=== PATIENT | female | born 1970 | race Caucasian/White ===

== ENCOUNTER 2024-09-18 11:41 | Inpatient (IN) | payer OTHER ==
[2024-09-18] MEDS ORDERED: TRAMADOL HCL 50 MG TAB PO PRN (20:50)
[2024-09-18] MEDS ORDERED: POLYETHYL GLY 3350 17 GM/DOSE PO PRN (20:50)
[2024-09-18] MEDS ORDERED: CETIRIZINE HCL 5 MG TABLET PO PRN (20:50)
[2024-09-18] MEDS: ACETAMINOPHEN 500 MG TAB PO SCH (21:00)
[2024-09-18] MEDS: ONDANSETRON 4 MG (ODT) TAB PO PRN (21:38)
[2024-09-18] MEDS: HYDROCODONE/APAP 5/325 MG TAB PO PRN (21:39)
[2024-09-18] MEDS: NORTRIPTYLINE HCL 25 MG CAP PO SCH (21:39)
[2024-09-18] MEDS: GABAPENTIN 100 MG CAP PO SCH (21:40)
[2024-09-18] MEDS: TRAZODONE 50 MG TABLET PO PRN (21:40)
[2024-09-18] MEDS: CYCLOBENZAPRINE 10 MG TAB PO SCH (21:40)
[2024-09-18] MEDS: QUETIAPINE 100MG TAB PO SCH (21:46)
[2024-09-18 22:28] VITALS: BMI 21.6
[2024-09-19] MEDS ORDERED: TRAMADOL HCL 50 MG TAB PO PRN (00:49)
[2024-09-19] MEDS ORDERED: TRAZODONE 50 MG TABLET PO SCH (01:00)
[2024-09-19 05:30] LABS: Hematocrit 23.8 % (36.0-45.0); Hemoglobin 7.9 g/dL (12.0-15.0); MCH 28.2 pg (27.0-35.0); MCHC 33.1 g/dL (32.0-36.0); MCV 85.2 fL (80-100); MPV 10.5 fL (7.6-11.3); RBC Red Blood Cell Count 2.80 M/uL (3.86-4.86); White Blood Count 2.60 thou/uL (4.3-10.9)
[2024-09-19 05:45] LABS: ALT/SGPT 19.0 U/L (13-56); AST/SGOT 36.0 U/L (15-37); Albumin 1.6 g/dL (3.4-5.0); Albumin/Globulin Ratio 0.5 (1.1-1.8); Alkaline Phosphatase 488.0 U/L (45-117); Anion Gap 7.7 mEq/L (5.0-15.0); BUN Blood Urea Nitrogen 13.0 mg/dL (7-18); Bilirubin Indirect, Calculated 0.4 mg/dL (0.2-0.8); Globulin 3.3 g/dL (2.3-3.5); Glucose Level 94.0 mg/dL (74-106); Magnesium 1.8 mg/dL (1.6-2.4); Potassium 3.7 mEq/L (3.5-5.1); Prealbumin 4.9 mg/dL (20-40)
[2024-09-19] MEDS: HYDROCODONE/APAP 5/325 MG TAB PO PRN (05:46)
[2024-09-19 05:50] LABS: Urine Microscopic Reflex YN NO UMIC
[2024-09-19 06:01] LABS: Differential Total Cells Count 100; Segmented Neutrophils 56 % (40-80); Smudge Cells 4
[2024-09-19 06:02] LABS: Blood Morphology Comment NOT SEEN (NOT SEEN)
[2024-09-19] MEDS: PANTOPRAZOLE 40MG TABLET PO SCH (06:35)
[2024-09-19] MEDS: LEVOTHYROXINE SOD 0.1 MG TAB PO SCH (06:36)
--- NOTE | 2024-09-19 07:52 | RAD REPORT ---
EXAM: AP view(s) of the abdomen Abdomen 1 View (KUB) HISTORY: r/o constipation COMPARISON: None FINDINGS: Nonobstructive bowel gas pattern.. Mild formed stool burden with formed stool at the ascending colon , sigmoid, and rectum. No suspicious calcifications are seen. No acute osseous abnormality. Other: Surgical clips in the right upper quadrant. IMPRESSION: Nonobstructive bowel gas pattern.
[2024-09-19] MEDS: [UNRECOGNIZED DRUG - OTHER] TOP SCH (08:00)
[2024-09-19] MEDS: AMYLASE/LIPASE/PROTEASE CAP PO SCH (08:42)
[2024-09-19] MEDS: CETIRIZINE HCL 5 MG TABLET PO SCH (08:43)
[2024-09-19] MEDS: LACTOBACILLUS/ACIDOPHILUS TAB PO SCH (08:43)
[2024-09-19] MEDS: ASCORBIC ACID 500 MG TABLET PO SCH (08:44)
[2024-09-19] MEDS: CITALOPRAM 10 MG TABLET PO SCH (08:44)
[2024-09-19] MEDS: MULTIVITAMIN TAB PO SCH (08:44)
[2024-09-19] MEDS: ENOXAPARIN 40 MG/0.4 ML SQ SCH (08:44)
[2024-09-19] MEDS ORDERED: TRIAMCINOLONE ACETONIDE TOP SCH (20:00)
[2024-09-19] MEDS: TRAMADOL HCL 50 MG TAB PO SCH (20:54)
[2024-09-19] MEDS: TRIAMCINOLONE ACETONIDE 0.1% TOP SCH (20:54)
--- NOTE | 2024-09-20 00:41 | HP ---
Date of Admission: 09/18/2024 Reason For Admission: Significant debility with complex medical history. History Of Present Illness: Ms. Aranda is a 54-year-old patient with history of allergic rhinitis, attention deficit hyperactivity disorder, depression, eczema, Gilbert's syndrome, mental retardation, chronic pancreatitis, who resides at the [facility] in [place], [place], a detention where bear was under 24/7 supervision. She was independent with mobility, performing activities of daily lester ng independently, and did not require an assistive device. She was hospitalized for flare of her chr onic pancreatitis in May and early August 2024. An attempt was made to remove a biliary stent, but t he procedure was unsuccessful. She was eventually cleared by the Surgical Team without a successful procedure, however, continued to require significant ongoing medical management for her comorbid cond itions. She had chronic pancreatitis along with liver dysfunction and jaundice, colonic volvulus, sm all bowel obstruction, cannot have a bowel movement in 6 days until with a fleets enema, in addition to bacterial peritonitis, epigastric abdominal pain, and cognitive impairment. She was evaluated by the Therapy Service and found to require significant help for performance of activities of daily lester ng, for transfers, for mobilization at home, and ambulation. While she was hospitalized prior to com ing to inpatient rehabilitation, she did have a multidisciplinary approach to manage pain, nutrition, to address her wound, which is a stage III wound in the abdominal area, and to monitor hemoglobin, h ematocrit, her liver function and kidney function. At this point, she is functioning well below her baseline, where she was independent and transferring without any assistive device. She needs moderate assistance for lower body dressing, dependent for toileting, supervision to minimum assistance for sit to stand, contact guard assistance for ambulatio n limited to about 125 feet. Also, she need speech for cognitive issues, safety awareness, and good decision making. As a result, she is admitted to the inpatient rehabilitation unit for physical, occ upational, and speech therapy 3.5 hours, 5 of 7 days, to help her return to her prior level of functi oning and go back to her detention. Past Medical History: Pancreatitis, disease, psychotic episodes, vitamin D deficiency, in flammatory bowel disease, Gilbert's syndrome, hypertension, impaired vision, allergic rhinitis, atten tion deficit hyperactivity disorder. Past Surgical History: She has dilatation, endoscopy of small intestine, ERCP with balloo n sweeping and esophagogastroduodenoscopy, hepatojejunostomy, laparotomy, rectal surgery, tonsillecto my, thyroidectomy, and tubal ligation. Allergies: CEPHALEXIN, CEPHALOSPORIN, MEPERIDINE, AND SULFA. Medications: Tylenol 650 every 8 hours as needed, vitamin C 500 mg daily, Zyrtec 10 mg daily, Celexa 30 mg daily, gabapentin 100 mg 3 times daily, Olema 5/325 every 4 hours as needed, Lactinex 1 tablet daily, Synthroid 0.1 mg daily, regular centrum 1 tablet daily, Pamelor 25 mg at bedtime, Zofran 4 mg every 4 hours as needed, Protonix 40 mg daily, Seroquel 100 mg at bedtime, tramadol 50 mg twice den y, Desyrel 50 mg at bedtime, and Actigall 300 mg twice daily. Laboratory Studies: White blood cell count is down to 2.6, hemoglobin 7.9, platelets are down to 62, now she is SCDs with heparin for DVT prophylaxis. Sodium 138, potassium 3.7, chloride 107, carbon d ioxide 27, BUN is 17, creatinine 0.36, glucose 94, calcium 7.8, magnesium 1.8, total bilirubin 4.2, i ndirect 0.4, AST 26, ALT 19, alkaline phosphatase elevated at 488, serum protein 4.9, albumin 1.6, to amanuel bilirubin 3.3, prealbumin 4.9. Urinalysis, 1+ urobilinogen, otherwise unremarkable. X-ray/imaging: She had a KUB x-ray done. The study shows nonobstructive bowel gas pattern. Family History: Noncontributory. Social History: No alcohol, tobacco, or IV drug use. The patient lives at home. Current Level Of Functioning: Currently, eating setup assistance, grooming setup assistance, moderat e assistance for bathing, upper body dressing as well as lower body dressing, dependent for toileting , supervision for transfers from bed to chair to wheelchair, toilet transfer moderate assistance, amb ulation 125 feet with supervision. Physical Examination: Vital Signs: Blood pressure 114/66, pulse 83, respiratory rate 16, temperature 98.5, oxygen saturati on 97%. Weight 130 pounds, height 5 feet 5 inches, BMI 21.6. General: Ms. Aranda is resting comfortably in bed. She is in no significant distress. HEENT: She appears normocephalic, atraumatic. Sclerae anicteric. Oropharynx pink and moist. Neck: Supple. Chest: Clear. Abdomen: She has good hemostasis at the surgical site in the abdominal region. Neurological: She follows commands appropriately. Cranial nerves intact 2 through 12. She has symm etric strength in upper extremities, however, slightly depressed from 4+ in upper and lower extremiti es. Intact sensation bilaterally. She is able to move both lower extremities fairly well. She did stand and ambulate with physical therapist. Rehab And Medical Assessment And Plan: Ms. Aranda is a 54-year-old patient admitted to the [facility] rehabilitation unit with impairment category 20, miscellaneous. Impairment group code is 16, debil ity. Etiologic diagnosis, chronic pancreatitis. Her comorbid conditions include decreased mobility, decreased physical functioning, , attention deficit hyperactivity disorder, depression, Gi lbert's syndrome, hypertension, disease, thyroid disease, prior psychotic episodes. Plan: In terms of her plan, she will have physical, occupational, and speech therapy 3.5 hours, 5 of 7 days. Her comorbid conditions are being addressed by continuing her list of medications which hav e been outlined. She will have due to very low platelets SCDs instead of Eliquis or Lovenox for DVT prophylaxis. Her cognitive issues addressed with speech. If need be, chair and bed alarm will be pl aced if she does exhibit impulsivity. Rehab Specific Plan: Ms. Aranda will have physical and occupational along with speech therapy for 3 .5 hours, 5 of 7 days, to improve her ability to communicate effectively, to monitor her safety aware ness issues, to perform activities of daily living , and to get back towards her prior leve l of functioning. She will have physical therapy to help her with transfers, mobilization, ambulatio n, and to ambulate without an assistive device, which she will be able to do so, and go up and down s everal steps as well. Occupational therapy will help with her upper and lower body dressing, toileti ng, showering, and managing all activities of daily living. She will have speech again for cognitive functioning. Ms. Aranda has a good understanding of the process of admission to the inpatient rehabilitation unit and how she will benefit from physical, occupational, and speech therapy. She will have 24 hours a day, 7 days a week, skilled rehabilitation and nursing, daily physician evaluation and management, an d perinatal social worker evaluation and management for discharge planning, home equipment, and physician fol lowup. If need be, additional help will be sought from the Hospitalist Service. Barriers To Discharge: Currently, there is some cognitive impairment making it difficult for her to fully appreciate all that she is requiring to do to help to return home safely. Furthermore, if ther e is a worsening requiring IV antibiotics, it may prolong her stay or she may have to go t o a facility that can manage multiple IV antibiotics such as an LTAC. However, the goal is to go miguel k to her detention where she can continue with therapy and return to her prior level of functioning. Length Of Stay: About 12 to 14 days. Disposition: Expected to go back to her detention and continue therapy via Home Health. Prognosis: Good. Code Status: Full code. Rehab Specific Goals: Become independent as possible with upper and lower body dressing, donning and doffing of footwear, transferring independently, mobilizing independently, up and down several steps independently. She is also expected to potentially do all of her cognitive functioning with just mi ld supervision. The above goals were reviewed with Ms. Aranda and she is in agreement. By signing this document, I acknowledge I personally performed a full physical examination on Ms. Veronika kirkland no later than 24 hours after her admission to the inpatient rehabilitation unit and determined t hat she is able to tolerate the above course of treatment at an intensive level for a reasonable tali od of time. A detailed individualized plan of care for her will be completed by hospital day 4 based on the preadmission screen, history and physical, and therapy evaluations. GAEL Voice ID: [id number]
[2024-09-20 07:30] LABS: Hematocrit 27.6 % (36.0-45.0); Hemoglobin 8.9 g/dL (12.0-15.0); MCH 27.8 pg (27.0-35.0); MCHC 32.4 g/dL (32.0-36.0); MCV 85.7 fL (80-100); MPV 9.7 fL (7.6-11.3); RBC Red Blood Cell Count 3.22 M/uL (3.86-4.86); White Blood Count 6.00 thou/uL (4.3-10.9)
[2024-09-20 07:51] LABS: ALT/SGPT 22.0 U/L (13-56); AST/SGOT 28.0 U/L (15-37); Albumin 1.7 g/dL (3.4-5.0); Albumin/Globulin Ratio 0.5 (1.1-1.8); Alkaline Phosphatase 572.0 U/L (45-117); Anion Gap 11.9 mEq/L (5.0-15.0); BUN Blood Urea Nitrogen 15.0 mg/dL (7-18); Globulin 3.6 g/dL (2.3-3.5); Glucose Level 64.0 mg/dL (74-106); Potassium 3.9 mEq/L (3.5-5.1)
[2024-09-20 09:16] LABS: Blood Morphology Comment NOTED (NOT SEEN); Differential Total Cells Count 100; Hypochromasia 1+; Segmented Neutrophils 91 % (40-80)
--- NOTE | 2024-09-20 12:11 | RAD REPORT ---
Procedure: Chest Single View HISTORY: Cough COMPARISON: none FINDINGS: Elevation of the right hemidiaphragm. Right pleural effusion suspected Areas of subsegmental atelectasis left base. Heart probably normal size. IMPRESSION: Right pleural effusion suspected. CT chest is recommended..
[2024-09-20] MEDS: NA CHLORIDE 0.9% 1,000 ML IV SCH (12:20)
[2024-09-20] MEDS: ALBUTEROL 2.5 MG/3 ML NEB SOL NEB PRN (13:49)
--- NOTE | 2024-09-20 21:48 | RAD REPORT ---
EXAM: CT CHEST WITH CONTRAST CLINICAL INDICATION: Evaluate right pleural effusion TECHNIQUE: Routine CT scan of the chest with intravenous contrast. One or more of the following dose reduction techniques were used: Automated exposure control, adjustment of the mA and/or kV according to patient size, and/or iterative reconstruction. Unless otherwise specified, incidental fi ndings do not require dedicated imaging follow-up. COMPARISON: No prior exam. FINDINGS: LUNGS: Mild/moderate subsegmental atelectasis in both lung bases. Small bilateral pleural effusions, slightly greater on the right. PLEURA: No pleural effusion. No pneumothorax. MEDIASTINUM AND LYMPH NODES: No mediastinal mass or fluid collection. Normal size mediastinal, hilar, and axillary lymph nodes. OSSEOUS STRUCTURES AND CHEST WALL: Intact. UPPER ABDOMEN: Significant splenomegaly noted. There is evidence of mild ascites in the upper abdomen along with moderate intrahepatic biliary tree dilatation. IMPRESSION: Small bilateral pleural effusions, slightly greater on the right, with bibasilar atelectasis.
--- NOTE | 2024-09-21 01:48 | PN ---
Subjective: Manoj is resting comfortably. She denies any worsening pain, feels she is making prog ress in terms of recovery. She is probably to be discharged in 2 days. She has good hemostasis at t he surgical site in the abdominal region. Objective: No fevers, chills, nausea, vomiting. No significant myalgias, arthralgias, rash. Some d ifficulty with sleeping and blood pressures. Physical Examination: Vital Signs: Blood pressure 100/55, pulse 82, respiratory rate 18, temperature 97.6, oxygen saturati on 92%. Weight 130 pounds, height 5 feet 5 inches, BMI 21.6. General: Ms. Aranda is resting comfortably, no pain, no acute distress. HEENT: She is normocephalic, atraumatic. Pain earlier was 6 to 7/10. Pain medications were adjusted. Otherwise, she has no focal deficits. Laboratory Studies: White blood cell count 6.0, hemoglobin 8.9, platelets improved to 112 from 62. Her sodium 138, potassium 3.9, chloride 106, carbon dioxide is 24, BUN 15, creatinine 0.52, calcium 8 .0, total bilirubin 5.6 and direct 3.8, which is normal from the liver dysfunction, alkaline phosphat ase is 572, albumin 1.7, and her prealbumin is 4.9. Urinalysis, 1+ bilirubin, otherwise unremarkable . X-ray/imaging: A chest x-ray was done earlier today, the study did show some right pleural effusion suspected and a CT scan was recommended and that is pending. Medications: She is on Tylenol 650 mg every 8 hours as needed, Gray 5/325 every 4 hours, albuterol nebulizer 2.5 mg every 6 hours. She has Pancrezyme for pancreatitis, vitamin C 500 mg daily, Zyrtec 10 mg daily, Celexa 20 mg daily, Flexeril 10 mg 3 times daily, gabapentin 100 mg 3 times daily. She has Lactinex on board, Synthroid 0.1 mg daily, Centrum Silver 1 tablet daily, Pamelor 25 mg at bedtim e, Protonix 40 mg daily, Seroquel 100 mg at bedtime, tramadol 50 mg twice daily, Desyrel 50 mg at bed time, and Actigall 300 mg twice daily. Progress Made With Physical, Occupational, And Speech Therapy: With physical therapy today, she ambu lated 750 feet with contact guard to standby assistance on leveled surface. She mobilized a wheelcha ir 250 feet with minimum assistance. She did have some drop in blood pressure to 99/64, heart rate 1 19. EKG shows sinus tachycardia. With occupational therapy, she required verbal cues using a Rollat or safely, independent with supine to sit transfers. She was able to pickup 15 ducks from the floor with a wheelchair while seated. With her speech today, she did sustain attention tasks for 10 minute s, demonstrated an average 70% accuracy. Temporal orientation skills used with 50% accuracy and spat ial skills with 75% accuracy, working memory 0.3 units of information was done with 90% accuracy. Assessment: Ms. Aranda is a 54-year-old patient admitted to the rehabilitation unit with pancreatit is, debility, decreased mobility, decreased physical functioning. She has of course other medical co nditions including recent surgery, she has anxiety, depression, GE reflux, neuropathic pain, shortnes s of breath, and sinus tachycardia. Plan: She will continue with physical, occupational, and speech therapy 3.5 hours, 5 of 7 days. Med ications have been noted above. We will continue to address her comorbid conditions. She has DVT pr ophylaxis with SCDs. She will continue with her comorbid condition medications which have been noted and therapy again as noted above, physical, occupational, and speech therapy 3.5 hours, 5 of 7 days. JANNA/DAVID Voice ID: [id number] Report ID: [id number]
--- NOTE | 2024-09-21 13:26 | P.RH.PN ---
Estimated Length of Stay: 11 Expected Discharge Date: 09/27/24 Discharge Disposition Plan: Home Family Support: Yes Alf Goal: Mobility, Transfers, Self Care Vital Signs: Last Vital Signs Temp 98.7 F 09/21/24 07:00 Pulse 98 H 09/21/24 07:00 Resp 16 09/21/24 07:00 BP 102/54 L 09/21/24 07:00 Pulse Ox 100 09/21/24 07:00 Laboratory: Laboratory Last Values WBC 6.00 thou/uL (4.3-10.9) 09/20/24 07:19 RBC 3.22 M/uL (3.86-4.86) L 09/20/24 07:19 Hgb 8.9 g/dL (12.0-15.0) L D 09/20/24 07:19 Hct 27.6 % (36.0-45.0) L 09/20/24 07:19 MCV 85.7 fL (80-100) 09/20/24 07:19 MCH 27.8 pg (27.0-35.0) 09/20/24 07:19 MCHC 32.4 g/dL (32.0-36.0) 09/20/24 07:19 RDW 18.1 % (12.1-15.2) H 09/20/24 07:19 Plt Count 112 thou/uL (152-406) L D 09/20/24 07:19 MPV 9.7 fL (7.6-11.3) 09/20/24 07:19 Neutrophils % FOLDER MACHINE 09/20/24 07:19 Lymphocytes % FOLDER MACHINE 09/20/24 07:19 Absolute Neutrophils FOLDER MACHINE 09/20/24 07:19 Segmented Neutrophils 91 % (40-80) H 09/20/24 07:19 Band Neutrophils 14 % (0-1) H 09/19/24 05:04 Absolute Lymphocytes FOLDER MACHINE 09/20/24 07:19 Lymphocytes 4 % (15-42) L 09/20/24 07:19 Monocytes 5 % (0-10) 09/20/24 07:19 Absolute Monocytes FOLDER MACHINE 09/20/24 07:19 Eosinophils 3 % (0-3) 09/19/24 05:04 Absolute Eosinophils FOLDER MACHINE 09/20/24 07:19 Absolute Basophils FOLDER MACHINE 09/20/24 07:19 Reactive Lymphocytes 7 % 09/19/24 05:04 Smudge Cells 4 09/19/24 05:04 Platelet Estimate Decr 09/20/24 07:19 Hypochromasia 1+ 09/20/24 07:19 Morphology Comment Noted (NOT SEEN) 09/20/24 07:19 Sodium 138 mEq/L (136-145) 09/20/24 07:19 Potassium 3.9 mEq/L (3.5-5.1) 09/20/24 07:19 Chloride 106 mEq/L (98-107) 09/20/24 07:19 Carbon Dioxide 24 mEq/L (21-32) 09/20/24 07:19 Anion Gap 11.9 mEq/L (5.0-15.0) 09/20/24 07:19 BUN 15 mg/dL (7-18) 09/20/24 07:19 Creatinine 0.52 mg/dL (0.55-1.02) L 09/20/24 07:19 Est GFR (CKD-EPI) 112 ml/min (=/>90) 09/20/24 07:19 Glucose 64 mg/dL (74-106) L 09/20/24 07:19 Calcium 8.0 mg/dL (8.5-10.1) L 09/20/24 07:19 Magnesium 1.8 mg/dL (1.6-2.4) 09/19/24 05:04 Total Bilirubin 5.6 mg/dL (0.2-1.0) H 09/20/24 07:19 Direct Bilirubin 3.8 mg/dL (0-0.2) H 09/19/24 05:04 Indirect Bilirubin 0.4 mg/dL (0.2-0.8) 09/19/24 05:04 AST 28 U/L (15-37) 09/20/24 07:19 ALT 22 U/L (13-56) 09/20/24 07:19 Alkaline Phosphatase 572 U/L (45-117) H 09/20/24 07:19 Serum Total Protein 5.3 g/dL (6.4-8.2) L 09/20/24 07:19 Albumin 1.7 g/dL (3.4-5.0) L 09/20/24 07:19 Globulin 3.6 g/dL (2.3-3.5) H 09/20/24 07:19 Albumin/Globulin Ratio 0.5 (1.1-1.8) L 09/20/24 07:19 Prealbumin 4.9 mg/dL (20-40) L 09/19/24 05:04 Urine Color Yellow (Yellow) 09/19/24 05:35 Urine Clarity Clear (Clear) 09/19/24 05:35 Urine pH 6.0 (5.0-7.0) 09/19/24 05:35 Ur Specific [place] 1.012 (1.005-1.030) 09/19/24 05:35 Glucose (UA)(Auto) Negative (Negative) 09/19/24 05:35 Urine Ketones Negative (Negative) 09/19/24 05:35 Urine Blood Negative (Negative) 09/19/24 05:35 Urine Nitrite Negative (Negative) 09/19/24 05:35 Urine Bilirubin 1+ (Negative) H 09/19/24 05:35 Urine Urobilinogen Normal (Normal) 09/19/24 05:35 Ur Leukocyte Esterase Negative Shanta/uL (Negative) 09/19/24 05:35 Urine Total Protein Negative (Negative) 09/19/24 05:35 Weight: 130 lb Wound Present: No Physician Update: Low prealbumin likely 2nd to chronic pancreas issues. Will give albumin. Her mom will work on a fdc snf instead of a senior care. SLUMS 3, poor attention, orientation and memory. With PT, CGA to SBA with bed mobility, transfers, RW 500' x 2, BP mid 90s/50s. Will start midodrine 5 mg in the morning. She was symptomatic with showers. 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 Please see the Rehabilitation Signature page for all necessary signatures.
[2024-09-21] MEDS ORDERED: D5 0.45 NS 1,000 ML IV SCH (15:00)
[2024-09-21] MEDS: D5 0.45 NS 1,000 ML IV SCH (15:06)
[2024-09-21] MEDS: ALBUMIN HUMAN 25% 50 ML IV ONE (15:17)
[2024-09-22] MEDS: MIDODRINE HCL 5 MG TABLET PO SCH (07:49)
[2024-09-22 08:50] LABS: Hematocrit 22.0 % (36.0-45.0); Hemoglobin 7.2 g/dL (12.0-15.0); MCH 28.2 pg (27.0-35.0); MCHC 32.7 g/dL (32.0-36.0); MCV 86.3 fL (80-100); MPV 12.6 fL (7.6-11.3); Nucleated RBC Absolute Count 0.0 (0-0); Nucleated Red Blood Cells % 0.0 % (0-0); RBC Red Blood Cell Count 2.55 M/uL (3.86-4.86); White Blood Count 9.80 thou/uL (4.3-10.9)
[2024-09-22 09:22] LABS: ALT/SGPT 21.0 U/L (13-56); AST/SGOT 40.0 U/L (15-37); Albumin 1.6 g/dL (3.4-5.0); Albumin/Globulin Ratio 0.5 (1.1-1.8); Alkaline Phosphatase 527.0 U/L (45-117); Anion Gap 9.7 mEq/L (5.0-15.0); BUN Blood Urea Nitrogen 22.0 mg/dL (7-18); Globulin 3.4 g/dL (2.3-3.5); Glucose Level 94.0 mg/dL (74-106); Potassium 3.7 mEq/L (3.5-5.1)
[2024-09-22 11:35] LABS: Blood Morphology Comment NOTED (NOT SEEN); Differential Total Cells Count 100; Hypochromasia 1+; Segmented Neutrophils 85 % (40-80)
[2024-09-22 12:55] LABS: Toxic Granulation 1+
[2024-09-24 06:59] LABS: Hematocrit 23.3 % (36.0-45.0); Hemoglobin 7.6 g/dL (12.0-15.0); MCH 27.8 pg (27.0-35.0); MCHC 32.7 g/dL (32.0-36.0); MCV 84.8 fL (80-100); MPV 11.0 fL (7.6-11.3); RBC Red Blood Cell Count 2.75 M/uL (3.86-4.86); White Blood Count 7.60 thou/uL (4.3-10.9)
[2024-09-24 07:17] LABS: ALT/SGPT 24.0 U/L (13-56); AST/SGOT 29.0 U/L (15-37); Albumin 1.5 g/dL (3.4-5.0); Albumin/Globulin Ratio 0.4 (1.1-1.8); Alkaline Phosphatase 541.0 U/L (45-117); Bilirubin Indirect, Calculated 0.7 mg/dL (0.2-0.8); Globulin 3.5 g/dL (2.3-3.5); Magnesium 1.7 mg/dL (1.6-2.4)
--- NOTE | 2024-09-24 07:45 | RAD REPORT ---
EXAM: XR of the abdomen HISTORY: Abdominal pain r/o obstruction/bladder distention COMPARISON: 09/19/2024 FINDINGS: XR of the abdomen shows a distended gas-filled appearance to the colon with mild fecal rete ntion. Cholecystectomy. No suspicious calcifications are seen. The bones are unremarkable. IMPRESSION: Mild distended gas and stool-filled colon, similar to prior study. No bowel obstruction seen.
[2024-09-24 10:29] LABS: Differential Total Cells Count 100; Segmented Neutrophils 91 % (40-80)
[2024-09-24 10:30] LABS: Anisocytosis 1+; Blood Morphology Comment NOTED (NOT SEEN); Hypochromasia 1+; Target Cells 1+
[2024-09-25 05:31] LABS: Anion Gap 10.3 mEq/L (5.0-15.0); BUN Blood Urea Nitrogen 14.0 mg/dL (7-18); Glucose Level 103.0 mg/dL (74-106); Potassium 3.3 mEq/L (3.5-5.1)
--- NOTE | 2024-09-26 03:51 | PN ---
Date of Progress Note: 09/25/2024 Time: 1:40 p.m. Subjective: Ms. Aranda is resting comfortably in bed, although she does have appearance of worsenin g jaundice with yellowing of the skin, eyes, and nails. The patient's mom entered the room to contin ue discussion about her prognosis. She did indicate that the patient was seen by the GI surgery and has had for at least 4 years. Multiple attempts at working on pancreatic function along with the [facility] and , but has come to a point where there is no longer a surgical option for her and she is not a transplant candidate. Discussion was entered into for the patient to consider hospice and that is a current plan. Review of Systems: No ongoing fevers or chills. Some episodes of disorientation, confusion, possibly related to combina tion of the metabolic encephalopathy and Flexeril. Flexeril infection study was discontinued and the patient is somewhat better in terms of orientation, following instructions, not hearing or seeing th ings. That was also discussed with the patient's mom and she will have episodes of psychotic issues as hearing and seeing things. May have some fixed false beliefs because of the significant metabolic derangements and elevated bilirubin levels. Physical Examination: Vital Signs: Blood pressure is 116/62, pulse 97, respiratory rate 18, temperature 98.4, oxygen satur ation 94%. General: Ms. Aranda is resting comfortably in bed. She does have appearance of jaundice on all ski n surface areas, sclerae, and nailbed. HEENT: She does appear normocephalic, atraumatic. Sclerae anicteric. Oropharynx moist. Neck: Supple. Laboratory Studies: White blood cell count 7.6, hemoglobin also 7.6, platelets are down to 73. Her total bilirubin elevated to 7.2, direct bilirubin elevated to 6.5, indirect is normal at 0.7, AST 29, ALT 24, alkaline phosphatase 541. Ammonia level is less than 15. Calcium 7.9, creatinine 0.51, sod ium 135, potassium 3.3. X-ray/imaging: KUB x-ray that was done yesterday showed mild distended gas and stool-filled colon, s o the prior study, no bowel obstruction is seen. Progress Made With Physical, Occupational, And Speech Therapy: With physical therapy, she noted, she did not want to be back out of bed. She did some exercises in bed, hip abduction and adduction, glu teal sets, heel slides, ankle pumps, and quadriceps exercises. Earlier, she did ambulate 250 feet an d 750 feet with short rest breaks, up and down 10 steps twice with bilateral handrails with contact g uard assistance, and walked 10 feet without assistive device. In terms of occupational therapy, cont act guard assistance for bed mobility, was able to supine, head of bed elevation, and sit to stand an d from edge of bed using a rolling walker, independent with toileting and handwashing. With speech t herapy, maintained sustained attention for 3 minutes, completed task with 90% accuracy with minimum a ssistance needed. Temporal orientation tasks with 80% accuracy and maximum assistance for visual aid s. She did recall 3 of 3 unrelated items after 30-second delay with moderate assistance to maximum a ssistance. Needed maximum assistance for working memory for 3 units of information with 50% accuracy . Assessment And Plan: Ms. Aranda is a 54-year-old patient who is in rehabilitation unit with pancrea titis. She has worsening renal failure with elevated bilirubin. She is a nonsurgical candidate per the patient's family reportedly. They are working with the surgeon for at least 1 year. She has dec reased mobility, decreased physical functioning, episode of psychotic features, and neuropathic pain. She is addressed with multiple modality pain management, hypothyroidism addressed. She has midodri ne for low blood pressures, Zofran for nausea, tramadol for pain, and trazodone for insomnia. She wi ll continue all therapy, physical, occupational, and speech. She is likely to be transferred to a [facility] for hosp[facility] care at [facility]. Plan: Again, continue all therapy until time of discharge. Continue with medication management. As noted, pain to be addressed on an ongoing basis. JANNA/DAVID Voice ID: [id number] Report ID: [id number]
[2024-09-26 06:47] LABS: Hematocrit 21.2 % (36.0-45.0); Hemoglobin 7.0 g/dL (12.0-15.0); MCH 27.4 pg (27.0-35.0); MCHC 33.2 g/dL (32.0-36.0); MCV 82.6 fL (80-100); MPV 11.7 fL (7.6-11.3); Nucleated RBC Absolute Count 0.0 (0-0); Nucleated Red Blood Cells % 0.0 % (0-0); RBC Red Blood Cell Count 2.57 M/uL (3.86-4.86); White Blood Count 12.20 thou/uL (4.3-10.9)
[2024-09-26 07:04] LABS: ALT/SGPT 18.0 U/L (13-56); AST/SGOT 23.0 U/L (15-37); Albumin 1.4 g/dL (3.4-5.0); Albumin/Globulin Ratio 0.4 (1.1-1.8); Alkaline Phosphatase 502.0 U/L (45-117); Anion Gap 8.2 mEq/L (5.0-15.0); BUN Blood Urea Nitrogen 16.0 mg/dL (7-18); Bilirubin Indirect, Calculated 1.1 mg/dL (0.2-0.8); Globulin 3.6 g/dL (2.3-3.5); Glucose Level 98.0 mg/dL (74-106); Magnesium 1.7 mg/dL (1.6-2.4); Potassium 3.2 mEq/L (3.5-5.1); Prealbumin 3.1 mg/dL (20-40)
[2024-09-26] MEDS: POTASSIUM CL SA 10 MEQ TAB PO ONE (08:53)
[2024-09-26 09:22] LABS: Blood Morphology Comment NOTED (NOT SEEN); Differential Total Cells Count 100; Segmented Neutrophils 82 % (40-80)
[2024-09-26 09:23] LABS: Anisocytosis 1+; Hypochromasia 1+; Target Cells 1+
--- NOTE | 2024-09-26 23:37 | PN ---
Date of Progress Note: 09/26/2024 Time: 1:10 Subjective: Ms. Aranda is resting comfortably. She appears more jaundiced today than yesterday, bu t she despite that is doing excellent in terms of her physical activity, out of the bed, mobilization , ambulation, and even up and down steps. She has no new complaints. Objective: No fevers or chills. Some nausea. Some difficulty keeping any oral intake as well given her significant pancreatitis and liver dysfunction with some markedly elevated bilirubin. Physical Examination: Vital Signs: Blood pressure is 102/55, pulse 96, respiratory rate 17, temperature 99.4, oxygen satur ation 94%. General: Ms. Aranda looks very jaundiced in all her skin and mucous membranes, and her sclerae, and nail bed. Otherwise, examination is unchanged. Neurologic: She has no focal neurologic deficits. Diffuse upper and lower extremity weakness. Laboratory Studies: Today, white blood cell count did go up to 12.2. She had a hemoglobin of 7.0, p latelets 272. Her neutrophils were 82, down from 91 two days ago. Sodium 135, potassium 3.2, chlori de 104, carbon dioxide 26, BUN 16, creatinine 0.7. Lactic acid is normal at 0.9. Her procalcitonin is significantly elevated at 3.09 and this is suggestive of systemic infection. Total bilirubin incr eased from 7.2 on the 4th to 9.1 today. Direct bilirubin increased from 6.5 to 8.0, indirect bilirub in increased from 0.7 to 1.1. AST normal at 33, ALT 18, alkaline phosphate decreased slightly from 5 41 to 502. Ammonia level is less than 15. Albumin is down to 1.4. Her prealbumin is very low at 3. 1. Again, procalcitonin 3.09. X-ray/imaging: No new x-rays or imaging done. Progress Made With Physical, Occupational, And Speech Therapy: With physical therapy today, she did ambulate 250 feet 5 times independently without an assistive device. She did work on in2nite for stability. She ascended and descended 20 steps independently using bilateral handrails. Re garding occupational therapy, independent with upper body dressing, lower body dressing, and footwear donning and doffing. Independent with oral hygiene at the sink. Needed supervision for bathing due to poor safety awareness. Independent for sit to stand. With speech, re-evaluated as for the disch arge planning, which planning was for tomorrow; however, it will be delayed. On the SLUMS, she impro elham by 8 points to 01/20 and on the BIMS, she remained the same at 01/05. She still has deficits of temporal orientation problems, short-term memory issues, also working memory problems. She has diffi culty with organized thinking, problem solving, and auditory recall. She is going to hospice. The patient is aware of that. The patient's mother is aware of that. She is the power of survey research associate for the patient. Assessment And Plan: Ms. Aranda is a 54-year-old patient who is in rehabilitation unit with pancrea titis and liver dysfunction. She has significant cognitive impairment and jaundice that is worsening on a daily basis. She is not a surgical candidate and she is now considering actually to be dischar ged to hospice care. She will continue currently with her comorbid condition medications. Continue with physical therapy, which she is doing excellent as well as occupational and speech therapy. JANNA/DAVID Voice ID: [id number] Report ID: [id number]
[2024-09-27] MEDS: levoFLOXacin 250 MG TAB PO SCH (06:26)
[2024-09-27] MEDS: ACETAMINOPHEN 325 MG TABLET PO PRN (06:26)
--- NOTE | 2024-09-27 07:48 | RAD REPORT ---
EXAMINATION: ONE VIEW CHEST XR CLINICAL INDICATION: c/o cough TECHNIQUE: Frontal chest projection is submitted. Examination is limited by patient positioning and t echnique. COMPARISON: 09/20/2024 FINDINGS: Underinflated lung danielson are present. Mild linear atelectasis is suspected in the left base The hear t is normal in size. No displaced fractures identified.
--- NOTE | 2024-09-28 02:08 | PN ---
Date of Progress Note: 09/27/2024 Subjective: Ms. Aranda is resting in bed. She has no complaints despite significant jaundice appea carine, and of course increase in bilirubin due to possible pancreatitis and liver dysfunction. Objective: No fevers, chills, nausea, vomiting. No myalgias or arthralgias. No rash. She does hav e of course very jaundiced appearance. Physical Examination: Vital Signs: Blood pressure is 104/51, pulse 108, respiratory rate 20, temperature 98.6, T-max 100.4 earlier, saturation is 94%. Pain level . General: Ms. Aranda is resting comfortably in bed, very jaundice appearance. HEENT: Mucous membranes, sclerae, nailbed, and skin very jaundiced. She is otherwise normocephalic, atraumatic. Oropharynx pink, moist. Abdomen: She has good hemostasis at the surgical site in the abdominal area. Neurologic: She has no focal neurological deficits. Laboratory Studies: White blood cell count is 12.2, neutrophils 80, her platelets are 72. Yesterday , procalcitonin was 3.09. Lactic acid 0.9. Total bilirubin elevated at 9.1, direct bilirubin elevat ed at 8.0, indirect 1.1. AST 23, ALT 18, alkaline phosphatase 502. She did have a chest x-ray earli er today. elevated white blood cell count. The study does show under-inflated lungs, mil d linear atelectasis heart normal size. No displaced fractures identified. It was compar ed to a study done on 2024. Progress Made With Physical, Occupational, And Speech Therapy: She performed supine to sit and sit t o supine transfers independently. Simulated car transfer done independently. She did stand to pivot transfers on a armchair placed 10 feet away without the use of an assistive device ____. With occupational therapy, propelled a wheelchair from the room to outside, sit-to- stand transfers with rest break in between or 15 pound dumbbells. With speech, able to maintain sust ained attention for given task for 8 minutes with 100% accuracy and independence. Required maximal a ssistance for temporal orientation tasks and 80% accuracy. She could recall 3 of 3 unrelated items a fter 20 seconds with moderate assistance. Assessment: Ms. Aranda is a 54-year-old patient with pancreatitis that is inoperable. She has live r dysfunction as well. She has increasing bilirubin and is very jaundiced, and she has inoperable co ndition. The patient and family understand they hospice. Mother is the medical power of auto body worker. The patient does have some cognitive issues and to be discharged in the morning. Plan: She will continue physical, occupational, and speech therapy. Continue with her comorbid cond ition medications including Bailey for pain, Tylenol. She has pancreatic enzymes. She has gabapentin on board dosage, levofloxacin 250 mg daily, Synthroid 0.1 mg daily, midodrine for blood p ressure support. She has Pamelor for insomnia and mood stabilization Seroquel for any psy chotic type episodes, as well for insomnia. Again, continue with physical, occupational, and speech therapy until discharge. Continue with comor bid condition medications. She is to be discharged with hospice discharge and she will go to correction home . JANNA/DAVID Voice ID: [id number] Report ID: [id number]
--- NOTE | 2024-09-28 13:22 | P.RH.PN ---
Estimated Length of Stay: 11 Expected Discharge Date: 09/28/24 Discharge Disposition Plan: Home Family Support: Yes [facility] Goal: Mobility, Transfers, Self Care Vital Signs: Last Vital Signs Temp 97.9 F 09/28/24 06:59 Pulse 79 09/28/24 06:59 Resp 16 09/28/24 06:59 BP 96/53 L 09/28/24 06:59 Pulse Ox 93 09/28/24 06:59 Laboratory: Laboratory Last Values WBC 12.20 thou/uL (4.3-10.9) H 09/26/24 06:34 RBC 2.57 M/uL (3.86-4.86) L 09/26/24 06:34 Hgb 7.0 g/dL (12.0-15.0) L 09/26/24 06:34 Hct 21.2 % (36.0-45.0) L 09/26/24 06:34 MCV 82.6 fL (80-100) 09/26/24 06:34 MCH 27.4 pg (27.0-35.0) 09/26/24 06:34 MCHC 33.2 g/dL (32.0-36.0) 09/26/24 06:34 RDW 17.5 % (12.1-15.2) H 09/26/24 06:34 Plt Count 72 thou/uL (152-406) L 09/26/24 06:34 MPV 11.7 fL (7.6-11.3) H 09/26/24 06:34 Neutrophils % RAISER HELPER 09/26/24 06:34 Lymphocytes % RAISER HELPER 09/26/24 06:34 Absolute Neutrophils RAISER HELPER 09/26/24 06:34 Segmented Neutrophils 82 % (40-80) H 09/26/24 06:34 Band Neutrophils 7 % (0-1) H 09/26/24 06:34 Absolute Lymphocytes RAISER HELPER 09/26/24 06:34 Lymphocytes 7 % (15-42) L 09/26/24 06:34 Monocytes 3 % (0-10) 09/26/24 06:34 Absolute Monocytes RAISER HELPER 09/26/24 06:34 Eosinophils 1 % (0-3) 09/24/24 06:46 Absolute Eosinophils RAISER HELPER 09/26/24 06:34 Absolute Basophils RAISER HELPER 09/26/24 06:34 Metamyelocytes 1 % (0-0) H 09/26/24 06:34 Reactive Lymphocytes 1 % 09/24/24 06:46 Smudge Cells 4 09/19/24 05:04 Toxic Granulation 1+ 09/22/24 07:52 Platelet Estimate Decr 09/26/24 06:34 Hypochromasia 1+ 09/26/24 06:34 Anisocytosis 1+ 09/26/24 06:34 Target Cells 1+ 09/26/24 06:34 Schistocytes Few 09/26/24 06:34 Morphology Comment Noted (NOT SEEN) 09/26/24 06:34 Sodium 135 mEq/L (136-145) L 09/26/24 06:34 Potassium 3.2 mEq/L (3.5-5.1) L 09/26/24 06:34 Chloride 104 mEq/L (98-107) 09/26/24 06:34 Carbon Dioxide 26 mEq/L (21-32) 09/26/24 06:34 Anion Gap 8.2 mEq/L (5.0-15.0) 09/26/24 06:34 BUN 16 mg/dL (7-18) 09/26/24 06:34 Creatinine 0.70 mg/dL (0.55-1.02) 09/26/24 06:34 Est GFR (CKD-EPI) 104 ml/min (=/>90) 09/26/24 06:34 Glucose 98 mg/dL (74-106) 09/26/24 06:34 Lactic Acid 0.9 mmol/L (0.4-2.0) 09/26/24 09:19 Calcium 7.6 mg/dL (8.5-10.1) L 09/26/24 06:34 Magnesium 1.7 mg/dL (1.6-2.4) 09/26/24 06:34 Total Bilirubin 9.1 mg/dL (0.2-1.0) H 09/26/24 06:34 Direct Bilirubin 8.0 mg/dL (0-0.2) H 09/26/24 06:34 Indirect Bilirubin 1.1 mg/dL (0.2-0.8) H 09/26/24 06:34 AST 23 U/L (15-37) 09/26/24 06:34 ALT 18 U/L (13-56) 09/26/24 06:34 Alkaline Phosphatase 502 U/L (45-117) H 09/26/24 06:34 Ammonia < 15 umol/L (19-54) L 09/24/24 06:46 Serum Total Protein 5.0 g/dL (6.4-8.2) L 09/26/24 06:34 Albumin 1.4 g/dL (3.4-5.0) L 09/26/24 06:34 Globulin 3.6 g/dL (2.3-3.5) H 09/26/24 06:34 Albumin/Globulin Ratio 0.4 (1.1-1.8) L 09/26/24 06:34 Prealbumin 3.1 mg/dL (20-40) L 09/26/24 06:34 Procalcitonin 3.09 ng/mL (<0.50) H 09/26/24 09:19 Urine Color Yellow (Yellow) 09/19/24 05:35 Urine Clarity Clear (Clear) 09/19/24 05:35 Urine pH 6.0 (5.0-7.0) 09/19/24 05:35 Ur Specific Roy 1.012 (1.005-1.030) 09/19/24 05:35 Glucose (UA)(Auto) Negative (Negative) 09/19/24 05:35 Urine Ketones Negative (Negative) 09/19/24 05:35 Urine Blood Negative (Negative) 09/19/24 05:35 Urine Nitrite Negative (Negative) 09/19/24 05:35 Urine Bilirubin 1+ (Negative) H 09/19/24 05:35 Urine Urobilinogen Normal (Normal) 09/19/24 05:35 Ur Leukocyte Esterase Negative Shanta/uL (Negative) 09/19/24 05:35 Urine Total Protein Negative (Negative) 09/19/24 05:35 Weight: 159 lb 3.2 oz Wound Present: No Closed Surgical Incision Present: Yes Negative Pressure Wound Therapy Present: No Physician Update: She has worsening bilirubin with a level of 9.1 yesterday. BIMS 11, SLUMS 12. Max assist for orientation, working memory, processing. Independent bed mobility, transfers, RW 1000' 15 stairs independently. Met all but one LTG with OT. Need supervision for showering. 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 Please see the Rehabilitation Signature page for all necessary s ignatures.
--- NOTE | 2024-10-02 00:39 | PN ---
Date of Progress Note: 10/01/2024 Time: 1 p.m. Subjective: Ms. Aranda is mobilizing. She is ambulating in the gym area. Has no complaints despit e significant jaundiced appearance, which is due to the ever increasing bilirubin level as she is a n onsurgical candidate for pancreatitis and liver dysfunction. Objective: Despite her condition, she denies any fevers, chills, nausea, vomiting, myalgias, arthral gias, rash. Physical Examination: Vital Signs: Blood pressure is 94/55, pulse 87, respiratory rate 18, temperature 97.4, oxygen satura tion 91%. General: Ms. Aranda is again mobilizing around the unit. She is in no acute distress. She appears very jaundiced in all her skin areas and mucous membrane. HEENT: She is otherwise normocephalic, atraumatic. Sclerae anicteric. Oropharynx pink and moist. Neck: Supple. Laboratory Studies: No new laboratory studies. She is on antibiotics for infection. She had procalcitonin at 3.09 with normal lactic acid. X-ray/imaging: No new x-rays or imaging. Medications: Medications have been reviewed and unchanged. Progress Made With Physical, Occupational, And Speech Therapy: With physical therapy, she ambulated 225 feet, 275 feet with a Rollator with standby assistance. She did require rest break. She went up and down 15 steps with contact guard assistance and ambulated another 150 feet twice with a Rollator with standby assistance. Hiu-di-kzqqa transfers with a Rollator done with standby assistance. With occupational therapy, independent with bathing, upper and lower body dressing, footwear, and oral hy giene. Independent with ulprix-ut-vih transfers. Edge of bed to wheelchair, also independent. With speech, she had temporal orientation demonstrated at 25% accuracy. Divergent naming for 5 members o f a concrete category demonstrated at 78% accuracy. After one minute, she recalled 3 of 3 unrelated pictures, but could only recall 2 of 3 after a three-minute delay. Assessment: Ms. Aranda is a 54-year-old patient in rehabilitation unit with pancreatitis. She has significant liver dysfunction. She has worsening jaundice, and she is a nonsurgical candidate. She is on levofloxacin for possible systemic infection. She has gabapentin for neuropathic pain. She fierro s midodrine for blood pressure support. Pamelor for insomnia and mood stabilization. Also, Seroquel is helpful for that. She psychotic episodes and insomnia. Plan: She will continue with physical, occupational, and speech therapy. Continue with the list of comorbid condition medications. She is to be discharged hospice care and as noted she is a Do Not Resuscitate, and she is a nonsurgical candidate for advancing pancreatitis and liver dysfunc tion of at least 4 years duration. While the patient is hospitalized, she will continue with therapy schedule. Consideration has been given for the patient to go to the acute care floor given the veronica ent's worsening status clinically, especially with ever increasing bilirubin. LB/MODL Voice ID: [id number] Report ID: [id number]
[2024-10-02 14:01] LABS: Hematocrit 19.4 % (36.0-45.0); Hemoglobin 6.4 g/dL (12.0-15.0); MCH 27.0 pg (27.0-35.0); MCHC 32.8 g/dL (32.0-36.0); MCV 82.4 fL (80-100); MPV 11.2 fL (7.6-11.3); Nucleated RBC Absolute Count 0.0 (0-0); Nucleated Red Blood Cells % 0.0 % (0-0); RBC Red Blood Cell Count 2.35 M/uL (3.86-4.86); White Blood Count 10.60 thou/uL (4.3-10.9)
[2024-10-02 14:16] LABS: ALT/SGPT 23.0 U/L (13-56); AST/SGOT 43.0 U/L (15-37); Albumin 1.2 g/dL (3.4-5.0); Albumin/Globulin Ratio 0.3 (1.1-1.8); Alkaline Phosphatase 495.0 U/L (45-117); Anion Gap 11.1 mEq/L (5.0-15.0); BUN Blood Urea Nitrogen 12.0 mg/dL (7-18); Bilirubin Indirect, Calculated 1.8 mg/dL (0.2-0.8); Globulin 3.5 g/dL (2.3-3.5); Glucose Level 120.0 mg/dL (74-106); Potassium 3.1 mEq/L (3.5-5.1)
[2024-10-02 15:56] LABS: Blood Morphology Comment NOTED (NOT SEEN); Differential Total Cells Count 100; Ovalocytes SLIGHT; Segmented Neutrophils 86 % (40-80)
[2024-10-02 19:16] VITALS: BP 102/55; TEMP 97.1
--- NOTE | 2024-10-03 01:25 | PN ---
Date of Progress Note: 10/02/2024 Time: 1 p.m. Subjective: Ms. Aranda is resting in bed. She has more nausea and abdominal pain today, not able t o participate much in therapy as her blood work continues to become significantly worse. The repeate d bilirubin is now elevated to over 13. All therapies have been put on hold. Objective: Abdominal pain, nausea, poor appetite, generalized fatigue, and malaise. Physical Examination: Vital Signs: Blood pressure 102/55, pulse 86, respiratory rate 17, temperature 97.1, oxygen saturati on 93%. General: Ms. Aranda is resting in bed. She is very jaundiced appearing more than yesterday. HEENT: She is otherwise normocephalic, atraumatic. Abdomen: Good hemostasis at the surgical site in the abdomen. No new findings. Laboratory Studies: Today, white blood cell count is 10.6, her hemoglobin has dropped to 6.4 from 7. 0, was as high as 8.9 on the , her platelet count is 178. Her sodium now is 133, potassium 3.1, chloride 101, carbon dioxide 24, BUN 12, creatinine 0.67, calcium 7.3, direct bilirubin elevated to 1 1.3, total bilirubin elevated at 13.1, AST 43, ALT 29, alkaline phosphatase 495. Consultation: The patient was seen by the Hospitalist Service and she will be transferred to the acu te care floor. She is at do not resuscitate status. The patient is to be admitted to hospice and ey are awaiting approval. Progress With Physical And Occupational Therapy: Today, she was on medical hold as noted due to her worsening condition and has had physical therapy. The occupational therapist noted she did attempt t o drink juice, but spit it out and I did eventually clear the juice from her face and arms, and she d id feel nauseated. With speech, she worked with the therapist for about 60 seconds attending to the task, but that had to be reminded. She was not oriented to any temporal concepts, unable to answer s imple questions. Assessment And Plan: Ms. Aranda is a 54-year-old patient with advancing pancreatitis. She has live r dysfunction, elevated bilirubin, worsening electrolytes. She did have improved white blood cell co unt. She had significant anemia with a drop of hemoglobin. She is now seen by the Hospitalist Sam ceballos and will be going to the acute care floor for higher level of medical care. The patient is at do not resuscitate status. She is a nonsurgical candidate for longstanding pancreatitis and is awaiting hospice placement. She is in serious condition at this point. JANNA/DAVID Voice ID: [id number] Report ID: [id number]
== END 2024-10-02 20:40 | disposition hospice, inpatient (51) | DRG 948 ==
LOC: 5TH 20:19
PROVIDERS: ADMIT Psychiatry & Neurology Neurology with Special Qualifications in Child Neurology; ATTEND Psychiatry & Neurology Neurology with Special Qualifications in Child Neurology
DX: R53.81 Other malaise (principal); K86.1 Other chronic pancreatitis; R17 Unspecified jaundice; E80.4 Gilbert syndrome; F90.9 Attention-deficit hyperactivity disorder, unspecified type; N19 Unspecified kidney failure; I10 Essential (primary) hypertension; F79 Unspecified intellectual disabilities; F41.9 Anxiety disorder, unspecified; F32.A Depression, unspecified; K21.9 Gastro-esophageal reflux disease without esophagitis; R00.0 Tachycardia, unspecified; R06.02 Shortness of breath; G47.00 Insomnia, unspecified; R11.0 Nausea; F06.8 Other specified mental disorders due to known physiological condition; D64.9 Anemia, unspecified; E03.9 Hypothyroidism, unspecified; Z66 Do not resuscitate
CPT/HCPCS: 36415; 71045; 71260; 74018; 80048; 80053; 80076; 81003; 82140; 83605; 83735; 84134; 84145; 85025; 87040; 87205; 92523; 93005; 94010; 94640; 97110; 97112; 97116; 97129; 97163; 97165; 97530; 97542; J1650; J7030; J7613; J7799; P9047; Q0162; Q9967

== ENCOUNTER 2024-10-02 20:26 | Inpatient (IN) | payer OTHER ==
--- NOTE | 2024-10-02 21:14 | P.HP ---
Certification for Inpatient Patient admitted to: Inpatient With expected LOS: >2 Midnights Practitioner: I am a practitioner with admitting privileges, knowledge of patient current condition, hospital course, and medical plan of care. Services: Services provided to patient in accordance with Admission requirements found in Title 42 Section 412.3 of the Code of Federal Regulations Patient History Date of Service: 10/02/24 Reason for admission: Anemia History of Present Illness: 54-year-old female with past medical history of allergic rhinitis, ADHD, depression, eczema, Gilbert syndrome, mental retardation, chronic pancreatitis, psychotic episodes, and has a past surgical history of ERCP laparotomy, rectal surgery tonsillectomy thyroidectomy who was admitted to the rehab started having generalized weakness and fatigue and hypotension and was admitted to medicine floor. Patient is a poor historian hence cannot offer any history hence most of the history is obtained from chart review and also talking with nurses at bedside . Allergies cephalexin [From Keflex] Allergy (Verified 09/18/24 20:32) Itching/Hives/Rash Cephalosporins Allergy (Verified 09/18/24 20:32) Itching/Hives/Rash meperidine [From Demerol] Allergy (Verified 09/18/24 20:32) Itching/Hives/Rash Sulfa (Sulfonamide Antibiotics) Allergy (Verified 09/18/24 20:32) Itching/Hives/Rash Home medications list reviewed: Yes Home Medications: Ascorbic Acid [Vitamin C*] 500 mg PO DAILY 09/28/24 Cetirizine HCl [Zyrtec*] 10 mg PO DAILY #30 09/28/24 Citalopram [Celexa*] 30 mg PO DAILY #30 09/28/24 Gabapentin [Neurontin*] 100 mg PO TID #90 cap 09/28/24 Levothyroxine [Synthroid*] 0.1 mg PO DAILYAC #30 tab 09/28/24 Midodrine HCl [Proamatine*] 5 mg PO DAILY #30 tab 09/28/24 Multivit,Ther Iron,Ca,FA & Min [Centrum Tablet*] 1 tab PO DAILY tab 09/28/24 Ondansetron [Zofran (Odt)*] 4 mg PO Q4H PRN #30 tab 09/28/24 Pantoprazole [Protonix Tab*] 40 mg PO DAILYAC #30 tab 09/28/24 Quetiapine [Seroquel*] 100 mg PO BEDTIME #30 tab 09/28/24 Trazodone [Desyrel*] 50 mg PO BEDTIME PRN #30 09/28/24 Triamcinolone Acetonide Cream 1 edgar TOP BID 09/28/24 levoFLOXacin [Levaquin*] 250 mg PO DAILY #7 tab 09/28/24 traMADol HCL [Ultram*] 50 mg PO BID tab 09/28/24 ursodioL [Actigall*] 300 mg PO BIDWM #60 cap 09/28/24 - Past Medical/Surgical History Diabetic: No Past Medical History: Reviewed- Non-Contributory -: ibd Mr depression -: pancreatitis abd pain/n/v -: hypothyroidism adhd eczema -: jaundice volvulus colon sbo -: gilbert's syndrome htn pcos -: impaired vision psychotic episodes -: vit d def Past Surgical History: Reviewed- Non-Contributory -: bowel resection -: ercp -: lap ryann -: lysis of adhesion -: total thyroidectomy - Family History Family History: Reviewed- Non-Contributory - Family History Father -: Hypertension Mother -: Cancer - Social History Smoking Status: Never smoker Alcohol use: No CD- Drugs: No Caffeine use: No Review of Systems is unable to be obtained Physical Examination - Vital Signs Temperature: 97.2 F Blood Pressure: 96/70 Pulse: 88 Respirations: 18 Pulse Ox (%): 94 - Physical Exam General: Alert, Mild distress HEENT: Atraumatic, Normocephalic Neck: Supple Respiratory: Clear to auscultation bilaterally, Normal air movement Cardiovascular: Regular rate/rhythm, Normal S1 S2 Capillary refill: <2 Seconds Gastrointestinal: Soft and benign, W/out hepatosplenomegaly Musculoskeletal: No clubbing, No swelling Integumentary: No rashes Neurological: Other Lymphatics: No axilla or inguinal lymphadenopathy Assessment and Plan - Plan Anemia Hemoglobin 6.2 No overt bleeding noted Will transfuse 2 unit PRBC Monitor H&H closely Transfuse as needed Hypokalemia Hyponatremia Hypocalcemia Electrolytes monitor and replace accordingly Chronic pancreatitis Will get a CT of the abdomen pelvis Pain control Gilbert syndrome Hepatic failure Elevated LFTs Total bili 12.9 and alk phos 464 Monitor LFTs closely Moderate protein calorie malnutrition Nutrition consult in a.m. Started on banana bag Hypotension History of ADHD Continue home medications when tolerated GI/DVT prophylaxis Advanced directive full code - Advance Directives Does patient have a Living Will: No Does patient have a Durable POA for Healthcare: No
[2024-10-02 21:52] LABS: Absolute Lymphocytes (CBC) 4.8 K/uL (0.7-4.9); Hematocrit 18.8 % (36.0-45.0); Hemoglobin 6.2 g/dL (12.0-15.0); MCH 27.1 pg (27.0-35.0); MCHC 32.8 g/dL (32.0-36.0); MCV 82.6 fL (80-100); MPV 11.1 fL (7.6-11.3); Nucleated RBC Absolute Count 0.0 (0-0); Nucleated Red Blood Cells % 0.0 % (0-0); RBC Red Blood Cell Count 2.28 M/uL (3.86-4.86); White Blood Count 8.80 thou/uL (4.3-10.9)
[2024-10-02] MEDS ORDERED: NA CHLORIDE 0.9% 250 ML IV SCH (22:00)
[2024-10-02 22:20] VITALS: BMI 26.6
[2024-10-02 22:25] LABS: ALT/SGPT 30.0 U/L (13-56); AST/SGOT 33.0 U/L (15-37); Albumin 1.2 g/dL (3.4-5.0); Albumin/Globulin Ratio 0.4 (1.1-1.8); Alkaline Phosphatase 464.0 U/L (45-117); Anion Gap 11.2 mEq/L (5.0-15.0); BUN Blood Urea Nitrogen 12.0 mg/dL (7-18); Globulin 3.4 g/dL (2.3-3.5); Glucose Level 119.0 mg/dL (74-106); Magnesium 1.9 mg/dL (1.6-2.4); Potassium 3.2 mEq/L (3.5-5.1)
[2024-10-02 22:47] LABS: PT Prothrombin Time 82.0 SECONDS (10-13.0)
[2024-10-02 23:06] LABS: Protime INR 7.7
[2024-10-03] MEDS: TRAMADOL HCL 50 MG TAB PO PRN (05:44)
[2024-10-03 06:06] LABS: Anion Gap 10.1 mEq/L (5.0-15.0); BUN Blood Urea Nitrogen 12.0 mg/dL (7-18); Glucose Level 95.0 mg/dL (74-106); Potassium 3.1 mEq/L (3.5-5.1)
--- NOTE | 2024-10-03 07:54 | RAD REPORT ---
EXAMINATION: CT ABDOMEN AND PELVIS WITH CONTRAST CLINICAL INDICATION: Pancreatitis TECHNIQUE: CT abdomen and pelvis was performed, after the administration of IV contrast, as per [facility] protocol. Axial, sagittal and coronal reconstructions were obtained. One or more of the following dose reduction techniques were used: Automated exposure control, adjustment of the mA and k V according to patient size, and iterative reconstruction. Unless otherwise specified, incidental findings do not require dedicated imaging follow-up. COMPARISON: 09/20/2024 FINDINGS: LOWER CHEST: Atelectasis is present in both posterior lung bases. Small bilateral pleural effusions, greater on the left. Postsurgical changes are present about the stomach. LIVER: Moderate intrahepatic biliary tree dilatation. Nonvisualized gallbladder. SPLEEN: The spleen is significantly enlarged measuring 18 cm in anterior posterior dimension. There i s thrombus present in the region of the splenic hilum presumably within splenorenal collateral venous structures. PANCREAS: Stigmata of chronic pancreatitis noted with multiple dystrophic calcifications and dilatati on of the hepatic duct. Portal venous hypertension also suspected. ADRENALS: Normal; no mass. KIDNEYS: Normal size and contour. No hydronephrosis. GASTROINTESTINAL TRACT: Mild to moderate ascites is present. No free air or bowel obstruction. APPENDIX: Normal appendix. LYMPH NODES: No lymphadenopathy. MUSCULOSKELETAL: Moderate lower lumbar degenerative changes. IMPRESSION: There is significant intrahepatic biliary tree dilatation seen. Consider ERCP or MRCP follow-up asses sment if clinically indicated. There is also noted to be stigmata of chronic pancreatitis. Spleen is significantly enlarged with thrombus within splenorenal venous collaterals. Postsurgical changes of gastric bypass. Mild ascites.
[2024-10-03 08:07] LABS: C-Reactive Protein 108.0 mg/L (<3.00); Lipase 14.0 U/L (13-75)
[2024-10-03] MEDS: POTASSIUM 25 MEQ EFFERV TAB PO ONE (10:37)
[2024-10-03 11:42] LABS: Bilirubin Indirect, Calculated 2.1 mg/dL (0.2-0.8)
--- NOTE | 2024-10-03 15:17 | P.PN ---
Date of Service: 10/03/24 Subjective: Seen resting in bed. She is a bit anxious. We discussed seeing a GI specialist while she is here. Wants to go home with home with hospice. Canceled MRCP Review of Systems is unable to be obtained Physical Examination - Vital Signs Temperature: 97.2 F Blood Pressure: 96/70 Pulse: 88 Respirations: 18 Pulse Ox (%): 94 - Physical Exam General: Alert, Mild distress, jaundice HEENT: Atraumatic, Normocephalic, scleral icterus Neck: Supple Respiratory: Clear to auscultation bilaterally, Normal air movement Cardiovascular: Regular rate/rhythm, Normal S1 S2 Capillary refill: <2 Seconds Gastrointestinal: Soft and benign, W/out hepatosplenomegaly Musculoskeletal: No clubbing, No swelling Integumentary: No rashes Neurological: Other Lymphatics: No axilla or inguinal lymphadenopathy Assessment and Plan - Plan Biliary dilation MRCP canceled due to patient's family request Patient and family discussing hospice Hypoalbuminemia Dose with albumin Coagulopathy Reverse INR with vitamin K daily Anemia Hemoglobin 6.2 now 9.6 after 2 units of PRBC No evidence of bleeding noted Monitor H&H closely Transfuse as needed Hypokalemia Hyponatremia Hypocalcemia Electrolytes monitor and replace accordingly Chronic pancreatitis Will get a CT of the abdomen pelvis Pain control Gilbert syndrome Hepatic failure Elevated LFTs Total bili 12.9 and alk phos 464 Monitor LFTs closely Moderate protein calorie malnutrition Nutrition consult in a.m. Started on banana bag Hypotension History of ADHD Continue home medications when tolerated GI/DVT prophylaxis Advanced directive full code - Advance Directives Does patient have a Living Will: No Does patient have a Durable POA for Healthcare: No
[2024-10-03] MEDS: VITAMIN K (ADULT) 10 MG/ML IVP ONE (18:51)
[2024-10-03] MEDS: FOLIC ACID 1 MG, MULTIVITAMINS INJ 10 ML, THIAMINE HCL 100 MG in NA CHLORIDE 0.9% 1,000 ML IV ONE (18:58)
[2024-10-03] MEDS: ALBUMIN HUMAN 25% 100 ML IV ONE (20:19)
[2024-10-04 00:36] LABS: Urine Culture Reflex Order REFLEXED; Urine Microscopic Reflex YN ORDER UMIC
[2024-10-04 05:52] LABS: Hematocrit 25.6 % (36.0-45.0); Hemoglobin 8.7 g/dL (12.0-15.0); MCH 28.6 pg (27.0-35.0); MCHC 34.1 g/dL (32.0-36.0); MCV 83.9 fL (80-100); MPV 10.7 fL (7.6-11.3); RBC Red Blood Cell Count 3.05 M/uL (3.86-4.86); White Blood Count 9.60 thou/uL (4.3-10.9)
[2024-10-04 06:12] LABS: ALT/SGPT 23.0 U/L (13-56); AST/SGOT 36.0 U/L (15-37); Albumin 1.5 g/dL (3.4-5.0); Albumin/Globulin Ratio 0.4 (1.1-1.8); Alkaline Phosphatase 458.0 U/L (45-117); Anion Gap 10.9 mEq/L (5.0-15.0); BUN Blood Urea Nitrogen 13.0 mg/dL (7-18); Globulin 3.4 g/dL (2.3-3.5); Glucose Level 70.0 mg/dL (74-106); Potassium 3.9 mEq/L (3.5-5.1)
[2024-10-04 06:18] LABS: PT Prothrombin Time 19.6 SECONDS (10-13.0); Protime INR 1.76
[2024-10-04] MEDS: POTASSIUM 25 MEQ EFFERV TAB PO ONE (09:00)
[2024-10-04 09:53] LABS: Anisocytosis 1+; Blood Morphology Comment NOTED (NOT SEEN); Differential Total Cells Count 100; Dohle Bodies PRESENT; Hypochromasia 1+; Polychromasia 1+; Segmented Neutrophils 91 % (40-80); Target Cells 1+; Toxic Granulation PRESENT
--- NOTE | 2024-10-04 10:33 | P.PN ---
Date of Service: 10/04/24 Subjective: Had a long discussion with her mother on the phone. She has seen a hepatobiliary specialist at [facility]. Despite aggressive surgeries patient is unable to have her biliary tree decongested. Mother states hepatobiliary surgeon recommended hospice. She would like hospice information and potentially inpatient hospice Review of Systems is unable to be obtained Physical Examination - Vital Signs Temperature: 97.2 F Blood Pressure: 96/70 Pulse: 88 Respirations: 18 Pulse Ox (%): 94 - Physical Exam General: Alert, Mild distress, jaundice HEENT: Atraumatic, Normocephalic, scleral icterus Neck: Supple Respiratory: Clear to auscultation bilaterally, Normal air movement Cardiovascular: Regular rate/rhythm, Normal S1 S2 Capillary refill: <2 Seconds Gastrointestinal: Soft and benign, W/out hepatosplenomegaly Musculoskeletal: No clubbing, No swelling Integumentary: No rashes Neurological: Other Lymphatics: No axilla or inguinal lymphadenopathy Assessment and Plan - Plan Intrahepatic biliary tree dilation Elevated bilirubin Hepatic failure Chronic pancreatitis No acute intervention at this time Patient has failed multiple hepatobiliary surgeries with specialist at [facility]. Recommendation is for hospice at this time No more further imaging per Ashley ROMERO MRCP canceled due to patient's family request Patient and family discussing hospice Hypoalbuminemia Dose with albumin Coagulopathy Reversed with vitamin K Anemia Hemoglobin 6.2 now 9.6 after 2 units of PRBC No evidence of bleeding noted Monitor H&H closely Transfuse as needed Hypokalemia Hyponatremia Hypocalcemia Electrolytes monitor and replace accordingly Chronic pancreatitis Will get a CT of the abdomen pelvis Pain control Gilbert syndrome Hepatic failure Elevated LFTs Total bili 12.9 and alk phos 464 Monitor LFTs closely Moderate protein calorie malnutrition Nutrition consult in a.m. Started on banana bag Hypotension History of ADHD Continue home medications when tolerated GI/DVT prophylaxis Advanced directive DNR Disposition: Inpatient hospice versus outpatient hospice - Advance Directives Does patient have a Living Will: No Does patient have a Durable POA for Healthcare: No
[2024-10-04] MEDS: Meropenem 1,000 MG in NA CHLORIDE 0.9% 100 ML IV SCH (10:46)
[2024-10-04 13:17] VITALS: O2SAT 98
[2024-10-04 13:54] VITALS: BP 115/63; TEMP 97.9
--- NOTE | 2024-10-04 16:44 | P.DS ---
Admission Date: 10/02/24 Discharge Date: 10/04/24 Disposition: HOSPICE-MEDICAL FACILITY Reason for Admission: Anemia Brief History of Present Illness: - Physical Exam General: Alert, Mild distress, jaundice HEENT: Atraumatic, Normocephalic, scleral icterus Neck: Supple Respiratory: Clear to auscultation bilaterally, Normal air movement Cardiovascular: Regular rate/rhythm, Normal S1 S2 Capillary refill: <2 Seconds Gastrointestinal: Soft and benign, W/out hepatosplenomegaly Musculoskeletal: No clubbing, No swelling Integumentary: No rashes Neurological: Other Lymphatics: No axilla or inguinal lymphadenopathy Assessment and Plan - Plan Intrahepatic biliary tree dilation Elevated bilirubin Hepatic failure Chronic pancreatitis No acute intervention at this time Patient has failed multiple hepatobiliary surgeries with specialist at [facility]. Recommendation is for hospice at this time No more further imaging per Ashley ROMERO MRCP canceled due to patient's family request Patient and family discussing hospice Hypoalbuminemia Dose with albumin Coagulopathy Reversed with vitamin K Anemia Hemoglobin 6.2 now 9.6 after 2 units of PRBC No evidence of bleeding noted Monitor H&H closely Transfuse as needed Hypokalemia Hyponatremia Hypocalcemia Electrolytes monitor and replace accordingly Chronic pancreatitis Will get a CT of the abdomen pelvis Pain control Gilbert syndrome Hepatic failure Elevated LFTs Total bili 12.9 and alk phos 464 Monitor LFTs closely Moderate protein calorie malnutrition Nutrition consult in a.m. Started on banana bag Hypotension History of ADHD Continue home medications when tolerated GI/DVT prophylaxis Advanced directive DNR Disposition: Inpatient hospice versus outpatient hospice - Advance Directives Does patient have a Living Will: No Does patient have a Durable POA for Healthcare: No Hospital Course: 54-year-old female with past medical history of allergic rhinitis, ADHD, depression, eczema, Gilbert syndrome, mental retardation, chronic pancreatitis, psychotic episodes, and has a past surgical history of ERCP laparotomy, rectal surgery tonsillectomy thyroidectomy who was admitted to the rehab started having generalized weakness and fatigue and hypotension and was admitted to medicine floor. Patient is a poor historian hence cannot offer any history hence most of the history is obtained from chart review and also talking with nurses at bedside. Upon admission hospice was consulted. After long discussion with family patient will be transferred to hospice care. Patient has undergone multiple surgeries at [facility] for failure of decongestion of hepatobiliary tree. Patient is stable for discharge Vital Signs/Physical Exam: Temp Pulse Resp BP Pulse Ox 97.9 F 89 18 115/63 100 10/04/24 12:00 10/04/24 12:00 10/04/24 12:00 10/04/24 12:00 10/04/24 12:00 Laboratory Data at Discharge: WBC 9.60 thou/uL (4.3-10.9) 10/04/24 05:44 Hgb 8.7 g/dL (12.0-15.0) L D 10/04/24 05:44 Hct 25.6 % (36.0-45.0) L 10/04/24 05:44 Plt Count 71 thou/uL (152-406) L 10/04/24 05:44 PT 19.6 SECONDS (10-13.0) H 10/04/24 05:44 INR 1.76 10/04/24 05:44 Sodium 134 mEq/L (136-145) L 10/04/24 05:44 Potassium 3.9 mEq/L (3.5-5.1) D 10/04/24 05:44 BUN 13 mg/dL (7-18) 10/04/24 05:44 Creatinine 0.52 mg/dL (0.55-1.02) L 10/04/24 05:44 Glucose 70 mg/dL (74-106) L 10/04/24 05:44 Phosphorus 3.2 mg/dL (2.5-4.9) 10/02/24 21:49 Magnesium 1.9 mg/dL (1.6-2.4) 10/02/24 21:49 Total Bilirubin 18.5 mg/dL (0.2-1.0) H 10/04/24 05:44 AST 36 U/L (15-37) 10/04/24 05:44 ALT 23 U/L (13-56) 10/04/24 05:44 Alkaline Phosphatase 458 U/L (45-117) H 10/04/24 05:44 Lipase 14 U/L (13-75) 10/03/24 05:17 Home Medications: Ascorbic Acid [Vitamin C*] 500 mg PO DAILY 09/28/24 Cetirizine HCl [Zyrtec*] 10 mg PO DAILY #30 09/28/24 Citalopram [Celexa*] 30 mg PO DAILY #30 09/28/24 Gabapentin [Neurontin*] 100 mg PO TID #90 cap 09/28/24 Levothyroxine [Synthroid*] 0.1 mg PO DAILYAC #30 tab 09/28/24 Midodrine HCl [Proamatine*] 5 mg PO DAILY #30 tab 09/28/24 Multivit,Ther Iron,Ca,FA & Min [Centrum Tablet*] 1 tab PO DAILY tab 09/28/24 Ondansetron [Zofran (Odt)*] 4 mg PO Q4H PRN #30 tab 09/28/24 Pantoprazole [Protonix Tab*] 40 mg PO DAILYAC #30 tab 09/28/24 Quetiapine [Seroquel*] 100 mg PO BEDTIME #30 tab 09/28/24 Trazodone [Desyrel*] 50 mg PO BEDTIME PRN #30 09/28/24 Triamcinolone Acetonide Cream 1 edgar TOP BID 09/28/24 levoFLOXacin [Levaquin*] 250 mg PO DAILY #7 tab 09/28/24 traMADol HCL [Ultram*] 50 mg PO BID tab 09/28/24 ursodioL [Actigall*] 300 mg PO BIDWM #60 cap 09/28/24 Physician Discharge Instructions: [facility] Skills Coordinator Call Mehnaz Cooley RN at [phone] for questions or concerns after discharge. Expect a call within 1-2 business days of discharge. Alternate: CRISTINA Jaramillo [phone]. Alternate: CRISTINA Connors [phone].
== END 2024-10-04 16:04 | disposition hospice, inpatient (51) | DRG 812 ==
LOC: 4TH 20:26
PROVIDERS: ADMIT Family Medicine; ATTEND Family Medicine
PROC: 30233N1 Transfusion of Nonautologous Red Blood Cells into Peripheral Vein, Percutaneous Approach (ICD-10-PCS; principal; 2024-10-03)
DX: D64.9 Anemia, unspecified (principal); D68.9 Coagulation defect, unspecified; E87.1 Hypo-osmolality and hyponatremia; K86.1 Other chronic pancreatitis; E44.0 Moderate protein-calorie malnutrition; K83.8 Other specified diseases of biliary tract; E87.6 Hypokalemia; E80.4 Gilbert syndrome; E83.51 Hypocalcemia; I95.9 Hypotension, unspecified; F79 Unspecified intellectual disabilities; E88.09 Other disorders of plasma-protein metabolism, not elsewhere classified; K72.90 Hepatic failure, unspecified without coma; F90.9 Attention-deficit hyperactivity disorder, unspecified type; Z66 Do not resuscitate; Z51.5 Encounter for palliative care; Z88.2 Allergy status to sulfonamides; Z88.1 Allergy status to other antibiotic agents; Z68.26 Body mass index [BMI] 26.0-26.9, adult; Z90.49 Acquired absence of other specified parts of digestive tract; Z79.890 Hormone replacement therapy; Z79.899 Other long term (current) drug therapy
CPT/HCPCS: 36415; 74177; 80048; 80053; 81001; 82247; 82248; 83605; 83690; 83735; 84100; 85018; 85025; 85610; 86140; 86850; 86900; 86901; 86920; 87086; 87088; 94760; J2185; J3411; J3430; J7030; J7050; P9016; P9047; Q9967

== ENCOUNTER 2024-10-04 16:03 | Inpatient (IN) | payer OTHER ==
[2024-10-04] MEDS ORDERED: BISACODYL 10 MG RECTAL SUPP PR PRN (16:18)
[2024-10-04] MEDS ORDERED: ACETAMINOPHEN 650MG/RECT SUPP PR PRN (16:18)
[2024-10-04] MEDS ORDERED: LORazepam 2 MG/ML VIAL IV PRN (16:18)
[2024-10-04] MEDS: SCOPOLAMINE HYDROBROMIDE PATCH TD SCH (16:18)
[2024-10-05] MEDS: MORPHINE 2 MG/ML SYR IV PRN (13:06)
[2024-10-07] MEDS: ONDANSETRON 4 MG/2 ML VIAL IV PRN (15:01)
[2024-10-07] MEDS: MORPHINE *EXTENDED RELEASE* 15 MG TAB PO SCH (20:41)
[2024-10-07] MEDS: QUETIAPINE 100MG TAB PO SCH (20:41)
[2024-10-09 08:10] VITALS: BP 79/45; TEMP 98.4
[2024-10-09 22:29] VITALS: O2SAT 96
[2024-10-10 06:31] VITALS: BMI 27.5
== END 2024-10-10 16:15 | disposition hospice, inpatient (51) | DRG 812 ==
LOC: 4TH 16:03
PROVIDERS: ADMIT Emergency Medicine; ATTEND Emergency Medicine
DX: D64.9 Anemia, unspecified (principal); E87.1 Hypo-osmolality and hyponatremia; K86.1 Other chronic pancreatitis; E44.0 Moderate protein-calorie malnutrition; E87.6 Hypokalemia; E83.51 Hypocalcemia; E80.4 Gilbert syndrome; K72.90 Hepatic failure, unspecified without coma; Z68.27 Body mass index [BMI] 27.0-27.9, adult; I95.9 Hypotension, unspecified; F90.9 Attention-deficit hyperactivity disorder, unspecified type; J30.9 Allergic rhinitis, unspecified; L30.9 Dermatitis, unspecified; F79 Unspecified intellectual disabilities; Z98.890 Other specified postprocedural states; Z88.1 Allergy status to other antibiotic agents; Z88.2 Allergy status to sulfonamides; Z88.8 Allergy status to other drugs, medicaments and biological substances; Z79.899 Other long term (current) drug therapy; Z79.890 Hormone replacement therapy; Z79.2 Long term (current) use of antibiotics; Z90.49 Acquired absence of other specified parts of digestive tract; E89.0 Postprocedural hypothyroidism
CPT/HCPCS: J2270; J2405